=== PATIENT | male | born 1985 | race Caucasian/White ===

== ENCOUNTER 2018-12-26 14:30 | Emergency (ER) | payer OTHER ==
[~2018-12-26] VITALS: Ht 175.3 cm; Wt 63.5 kg
[2018-12-26] MEDS ORDERED: NKM (14:39)
[2018-12-26 14:50] VITALS: BP 121/69
--- NOTE | 2018-12-26 14:57 | NUR ---
ED Nurse Note: pt presents with c/o "running at full speed and ran into a glass door/window." pt relates no loc but does have left great toe pain and left forehead/brow area pain. also relates has had frequent bouts of palpitations and does have an appt with type cutter. MANDY well. left toe noted to be edematous. redness with swelling to left forehead area. 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 now states he can feel it to back of throat only. no break in skin noted. pt A/Ox4 upon arrival. no n/v. no dyspnea
--- NOTE | 2018-12-26 15:21 | Emergency Room Report ---
History of Present Illness General Chief Complaint: Multiple Trauma/Fall Source: Patient Present Illness HPI This patient states that he was at work today and was running through a room and ran into a glass door that he didn't see. He states he hit his forehead and his left great toe on the glass. He did not have loss of consciousness. He states he feels like a "fluid" sensation in his head. He also has a nosebleed. He denies headache or neck pain. He does have a history of osteogenesis imperfecta. The last fracture he had was 8 years ago. He states his condition is mild. As a side note, he states that he has regular palpitations. He states these palpitations occur daily and up to 40 times a day. He describes the palpitations as skipped beats. He denies chest pain or shortness of breath. Denies abdominal pain. He denies any other musculoskeletal pain. He has no other complaints. Allergies: Coded Allergies: No Known Allergies (Unverified , 12/26/18) Patient History Past Medical History: none, see triage record Social History: Denies: smoking, alcohol use, drug use Reviewed Nursing Documentation: PMH: Agreed; PSxH: Agreed Nursing Documentation-PMH Past Medical History: No History, Except For Review of Systems All Other Systems: negative except mentioned in HPI Physical Exam Vital Signs Date Time Temp Pulse Resp B/P (MAP) Pulse Ox O2 Delivery O2 Flow Rate FiO2 12/26/18 14:33 98.2 82 16 100/57 99 Room Air Sp02 EP Interpretation: reviewed, normal General Appearance: no apparent distress, alert, GCS 15, non-toxic Head: normocephalic, other - Quartersized swelling on L. mid forehead. Eyes: bilateral eye normal inspection, bilateral eye PERRL ENT: hearing grossly normal, normal pharynx, no angioedema, normal voice, other - L. nares with recent bleeding. No active bleeding. Neck: full range of motion, supple/symm/no masses Respiratory: chest non-tender, lungs clear, normal breath sounds, no respiratory distress, no retraction, no accessory muscle use, speaking full sentences Cardiovascular #1: regular rate, rhythm, no edema Gastrointestinal: normal bowel sounds, non tender, soft, non-distended, no guarding, no rebound Rectal: deferred Musculoskeletal: back normal, normal range of motion, other - L. great toe TTP and swollen. Neurologic: alert, oriented x3, responsive, motor strength/tone normal, sensory intact, speech normal Psychiatric: judgement/insight normal, memory normal, mood/affect normal, no suicidal/homicidal ideation Skin: normal color, no rash, warm/dry, well hydrated Medical Decision Making Diagnostic Impression: Primary Impression: Frontal sinus fracture Additional Impression: Fracture of left great toe ER Course This patient has a frontal bone fracture. This is in the setting of osteogenesis imperfecta. He also has a left great toe fracture. There is no acute intracranial process. The patient was given IV Ancef. The patient is a [facility] patient. I had planned on transferring this patient to [facility] because [facility] does not have maxillofacial surgery. The [facility] [place] physician Dr. Liriano discussed the case with her maxillofacial surgeon and this fracture only requires outpatient follow-up. The patient will be placed on Keflex as a precaution. He had [facility] [place] insurance will also arrange orthopedic follow-up for this patient's left great toe fracture. The patient is given close return precautions about instructions. Laboratory Tests Test 12/26/18 15:10 White Blood Count 6.1 K/UL (4.8-10.8) Red Blood Count 5.29 M/UL (4.70-6.10) Hemoglobin 16.0 G/DL (14.2-18.0) Hematocrit 45.3 % (42.0-52.0) Mean Corpuscular Volume 86 FL (80-99) Mean Corpuscular Hemoglobin 30.2 PG (27.0-31.0) Mean Corpuscular Hemoglobin Concent 35.2 G/DL (32.0-36.0) Red Cell Distribution Width 11.0 % (11.6-14.8) L Platelet Count 140 K/UL (150-450) L Mean Platelet Volume 7.4 FL (6.5-10.1) Neutrophils (%) (Auto) 79.8 % (45.0-75.0) H Lymphocytes (%) (Auto) 14.3 % (20.0-45.0) L Monocytes (%) (Auto) 4.2 % (1.0-10.0) Eosinophils (%) (Auto) 0.5 % (0.0-3.0) Basophils (%) (Auto) 1.1 % (0.0-2.0) Prothrombin Time 11.5 SEC (9.30-11.50) Prothrombin Time INR 1.1 (0.9-1.1) PTT 26 SEC (23-33) Sodium Level 141 MMOL/L (136-145) Potassium Level 3.8 MMOL/L (3.5-5.1) Chloride Level 104 MMOL/L (98-107) Carbon Dioxide Level 29 MMOL/L (21-32) Anion Gap 8 mmol/L (5-15) Blood Urea Nitrogen 14 mg/dL (7-18) Creatinine 0.9 MG/DL (0.55-1.30) Estimate Glomerular Filtration Rate > 60 mL/min (>60) Glucose Level 96 MG/DL (74-106) Calcium Level 9.6 MG/DL (8.5-10.1) Total Bilirubin 0.9 MG/DL (0.2-1.0) Aspartate Amino Transferase (AST) 17 U/L (15-37) Alanine Aminotransferase (ALT) 28 U/L (12-78) Alkaline Phosphatase 91 U/L (46-116) Troponin I 0.000 ng/mL (0.000-0.056) Total Protein 7.8 G/DL (6.4-8.2) Albumin 4.5 G/DL (3.4-5.0) Globulin 3.3 g/dL Albumin/Globulin Ratio 1.4 (1.0-2.7) EKG Diagnostic Results Rate: normal Rhythm: NSR ST Segments: no acute changes Rhythm Strip Diag. Results EP Interpretation: yes Rate: 80's Rhythm: NSR, no PVC's, no ectopy Chest X-Ray Diagnostic Results Chest X-Ray Diagnostic Results : Chest X-Ray Ordered: Yes # of Views/Limited/Complete: 1 View Indication: Other EP Interpretation: Yes Interpretation: no consolidation, no effusion, no pneumothorax, no acute cardiopulmonary disease Impression: No acute disease Electronically Signed by: Patricia Galindo DO CT/MRI/US Diagnostic Results CT/MRI/US Diagnostic Results : Imaging Test Ordered: CT max/facial, CT Head Impression CT max/facial Impression: Subtle nondisplaced inner and outer table fracture of the left frontal sinus, primarily manifested by considerable preseptal periorbital emphysema and a few epidural gas bubbles Findings discussed by phone with Dr. Silva in the emergency room at the time of interpretation CT head- Impression: Evidence of left frontal sinus region trauma-see separate maxillofacial Negative for acute intracranial bleed or mass effect Last Vital Signs Date Time Temp Pulse Resp B/P (MAP) Pulse Ox O2 Delivery O2 Flow Rate FiO2 12/26/18 14:51 88 18 Room Air 12/26/18 14:50 121/69 100 12/26/18 14:33 98.2 Status: improved Disposition: HOME, SELF-CARE Condition: Improved Referrals: [facility] (PCP) Patricia Galindo DO Dec 26, 2018 15:21
[2018-12-26 15:25] LABS: BASOPHILS % (AUTO) 1.1 % (0.0-2.0); EOSINOPHILS % (AUTO) 0.5 % (0.0-3.0); HEMATOCRIT 45.3 % (42.0-52.0); LYMPHOCYTES % (AUTO) 14.3 % (20.0-45.0); MEAN CORPUSCULAR VOLUME 86 FL (80-99); MONOCYTES % (AUTO) 4.2 % (1.0-10.0); NEUTROPHILS % (AUTO) 79.8 % (45.0-75.0); PLATELET COUNT 140 K/UL (150-450); RED BLOOD COUNT 5.29 M/UL (4.70-6.10); WHITE BLOOD COUNT 6.1 K/UL (4.8-10.8)
--- NOTE | 2018-12-26 15:29 | NUR ---
ED Nurse Note: pt currently in radiology dept.
[2018-12-26 15:40] LABS: ANION GAP 8 mmol/L (5-15); BLOOD UREA NITROGEN 14 mg/dL (7-18); CALCIUM 9.6 MG/DL (8.5-10.1); CARBON DIOXIDE 29 MMOL/L (21-32); CHLORIDE 104 MMOL/L (98-107); CREATININE 0.9 MG/DL (0.55-1.30); POTASSIUM 3.8 MMOL/L (3.5-5.1); SODIUM 141 MMOL/L (136-145)
[2018-12-26 15:45] LABS: ALANINE AMINOTRANSFERASE 28 U/L (12-78); ALBUMIN 4.5 G/DL (3.4-5.0); ALBUMIN/GLOBULIN RATIO 1.4 (1.0-2.7); ALKALINE PHOSPHATASE 91 U/L (46-116); ASPARTATE AMINO TRANSFERASE 17 U/L (15-37); BILIRUBIN,TOTAL 0.9 MG/DL (0.2-1.0)
[2018-12-26 15:46] LABS: INR 1.1 (0.9-1.1)
--- NOTE | 2018-12-26 16:01 | Diagnostic Imaging Report ---
Indication: Trauma, pain Technique: One view of the chest Comparison: none Findings: Lungs and pleural spaces are clear. Heart size is normal Impression: No acute process
--- NOTE | 2018-12-26 16:14 | Diagnostic Imaging Report ---
. Indications: Trauma, pain Technique: Spiral images obtained through the facial bones. No IV contrast utilized. Multiplanar reconstructions were generated.Total dose length product 1961 mGycm. CTDIvol(s) 70, 28 mGy. Dose reduction achieved using automated exposure control Comparison: none Findings: There is a very subtle fracture of the left frontal sinus, with a nondisplaced fracture line visible in the outer table. There is also on a single slice a fracture line visible on the inner table. Small amount of epidural gas just above the anterior orbital roof confirms the posterior wall involvement. There is considerable emphysema of the preseptal periorbital soft tissues. There is mild periorbital soft tissue swelling. The optic globes are intact. The remainder the facial bones are intact. There is no suspicious sinus opacification or air-fluid levels demonstrated. The dentition is intact. The mastoids are clear. There is minimal mucosal thickening of the left ethmoid sinuses. The facial soft tissues are unremarkable. Impression: Subtle nondisplaced inner and outer table fracture of the left frontal sinus, primarily manifested by considerable preseptal periorbital emphysema and a few epidural gas bubbles Findings discussed by phone with Dr. Silva in the emergency room at the time of interpretation The CT scanner at [facility] is accredited by the [employer] and the scans are performed using protocols designed to limit radiation exposure to as low as reasonably achievable to attain images of sufficient resolution adequate for diagnostic evaluation.
--- NOTE | 2018-12-26 16:17 | Diagnostic Imaging Report ---
Indications: Head trauma, pain Technique: Spiral acquisitions obtained through the brain. Angled axial and coronal 5 x 5 mm slices were reconstructed. Total dose length product 1961.7 mGycm. CTDI vol(s) 70.38,28.19 mGy. Dose reduction achieved using automated exposure control Comparison: None. Findings: No acute intracranial hemorrhage or edema, mass effect, nor midline shift. Tiny epidural gas bubble is seen in the anterior inferior left frontal region. Considerable periorbital emphysema is noted on the left. The calvarium is intact. Ventricles and extra-axial CSF spaces are normal in size. Monet-white differentiation is normal. Impression: Evidence of left frontal sinus region trauma-see separate maxillofacial CT report Negative for acute intracranial bleed or mass effect The CT scanner at [facility] is accredited by the [employer] and the scans are performed using protocols designed to limit radiation exposure to as low as reasonably achievable to attain images of sufficient resolution adequate for diagnostic evaluation.
--- NOTE | 2018-12-26 16:24 | NUR ---
called [facility] report given will call back with
[2018-12-26] MEDS ORDERED: ceFAZolin 1gm/50ml Premix 50 ML IV ONE (16:30)
--- NOTE | 2018-12-26 16:30 | NUR ---
[facility] report has been faxed [phone]
--- NOTE | 2018-12-26 16:36 | Diagnostic Imaging Report ---
Indication: Trauma, pain in left great toe Technique: 3 views of the left great toe Comparison: none Findings: There is a comminuted fracture of the first proximal phalanx. This involves the proximal articular surface. This is posteriorly angulated. Impression: Positive for comminuted intra-articular first proximal phalangeal fracture Findings discussed by phone with Dr. Silva in the emergency room at the time of interpretation
--- NOTE | 2018-12-26 16:40 | NUR ---
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 good cms remains.
[2018-12-26 16:49] VITALS: BP 121/66
--- NOTE | 2018-12-26 16:49 | NUR ---
ED Nurse Note: pt remains A/Ox4 denies increased c/o aware and agrees to transfer plan to [place]. antibiotics infusing well
[2018-12-26] MEDS ORDERED: IBUPROFEN800 MG ORAL (18:14)
[2018-12-26] MEDS ORDERED: CEPHALEXIN500 MG ORAL (18:16)
[2018-12-26 18:26] VITALS: BP 127/63
[2018-12-26 18:27] VITALS: BP 127/63
--- NOTE | 2018-12-27 17:38 | Cardiology Report ---
APPROVED REPORT EKG Measurement Heart [id number] AR [id number] [id number] Normal sinus rhythm Normal ECG
== END 2018-12-26 18:28 | disposition home or self-care (01) ==
LOC: EDBD 14:30 → EMR 14:45
DX: S02.19XA Other fracture of base of skull, initial encounter for closed fracture (principal); S92.412A Displaced fracture of proximal phalanx of left great toe, initial encounter for closed fracture; W22.8XXA Striking against or struck by other objects, initial encounter; Y92.89 Other specified places as the place of occurrence of the external cause; Q78.0 Osteogenesis imperfecta
CPT/HCPCS: 36415; 70450; 70486; 71045; 73660; 80053; 84484; 85025; 85610; 85730; 93005; 96361; 96365; 99284; J0690